=== PATIENT | female | born 1985 | race Caucasian/White ===

== ENCOUNTER → 2020-07-16 | Outpatient (CLI) | payer BC ==
[2020-07-16 13:49] LABS: Basophils % (A) 0 %; Eosinophils # (A) 0.1 k/uL (0-0.7); Eosinophils % (A) 1 %; HCT 31.2 % (34.0-46.0); HGB 10.5 gm/dL (11.4-16.0); Lymphocytes # (A) 1.6 k/uL (1.0-4.8); Lymphocytes % (A) 17 %; MCH 29.5 pg (25.0-35.0); MCHC 33.8 g/dL (31.0-37.0); MCV 87.3 fL (80.0-100.0); Monocytes # (A) 0.4 k/uL (0-1.0); Monocytes % (A) 4 %; Neutrophils # (A) 7.3 k/uL (1.3-7.7); Neutrophils % (A) 77 %; Platelet Count 299 k/uL (150-450); RBC 3.57 m/uL (3.80-5.40); RDW 14.1 % (11.5-15.5); WBC 9.6 k/uL (3.8-10.6)
[2020-07-16 19:59] LABS: Total Volume 24 Hour,Urine 900 mL
[2020-07-16 21:03] LABS: Total Protein 24 Hour,Urine 188.1 mg/24Hr
[2020-07-17 02:23] LABS: Creatinine 24 Hour,Urine 1239.3 mg/24hr (800.0-1800.0)
== END | disposition home or self-care (01) ==
LOC: LABWHC1 13:22
PROVIDERS: ATTEND Obstetrics & Gynecology
DX: R80.9 Proteinuria, unspecified (principal)
CPT/HCPCS: 36415; 81050; 82575; 84156; 84450; 84460; 84550; 85025

== ENCOUNTER 2020-09-08 10:01 | Inpatient (IN) | payer BC ==
[2020-09-07 13:46] VITALS: BMI 33.8
[~2020-09-08 10:01] MED LIST: CITRIC ACID-SODIUM CITRATE 15 ML CUP PO ONE; LACTATED RINGERS 1,000 ML IV ONE; LACTATED RINGERS 1,000 ML IV SCH
[2020-09-08 10:33] LABS: Glucose,Whole Blood 75 mg/dL (75-99)
[2020-09-08 10:49] LABS: Basophils % (A) 0 %; Eosinophils # (A) 0.1 k/uL (0-0.7); Eosinophils % (A) 1 %; HCT 35.2 % (34.0-46.0); HGB 11.4 gm/dL (11.4-16.0); Lymphocytes # (A) 1.7 k/uL (1.0-4.8); Lymphocytes % (A) 17 %; MCH 27.5 pg (25.0-35.0); MCHC 32.4 g/dL (31.0-37.0); Mean Platelet Volume 8.2; Monocytes # (A) 0.5 k/uL (0-1.0); Monocytes % (A) 5 %; Neutrophils # (A) 7.5 k/uL (1.3-7.7); Neutrophils % (A) 75 %; Platelet Count 315 k/uL (150-450); RBC 4.14 m/uL (3.80-5.40); RDW 14.8 % (11.5-15.5)
--- NOTE | 2020-09-08 12:01 | P.HPOB ---
History of Present Illness H&P Date: 09/08/20 Chief Complaint: Insulin-dependent gestational diabetes, breech presentation, 38-0/7 weeks This is a 34-year-old 1 para 0 woman with an estimated due date of 09/22/2020 based on LMP consistent with first trimester ultrasound. She is admitted at 38-0/7 weeks gestation for primary low transverse section secondary to history of insulin-dependent gestational diabetes as well as findings of breech presentation on 36 week ultrasound. She had also had estimat ed weight greater than the 88th percentile. She has had reassuring testing and has been followed with an board certified arts therapist for insulin management. She is taking a long-acting insulin in the evening as well as covering meals with an insulin sliding scale. has otherwise been uncomplicated. She has a history of a cervical cold knife cone biopsy and had normal cervical length ultrasounds during the . Laboratory data: Blood type O+, antibody screen negative, rubella immune, VDRL nonreactive, hepatitis B surface antigen negative, HIV negative, gonorrhea and clinic cultures negative, glucose tolerance testing abnormal, group B strep cultures negative. On examination today by Carlos Alberto's maneuver the is not clearly in the breech presentation. The patient indicates she strongly desires primary low transverse section regardless of positioning. We have discussed previously the risk of large for gestational age fetus in the setting of in sulin-dependent diabetes and the potential risks for delivery competitions. In light of these things and her plan already for primary section we agreed to proceed. She also has signed consent forms for bilateral tubal ligation and very much would like this accomplished. We have discussed alternatives for long-term contraception including the interval tubal ligation, intrauterine device or vasectomy. Review of Systems All systems: negative Past Medical History Past Medical History: Diabetes Mellitus Additional Past Medical History / Comment(s): gestational diabetes, 1st pregnan cy -LMP November 2019, tests positive for TB-xrays always negative. History of Any Multi-Drug Resistant Organisms: None Reported Past Surgical History: Cholecystectomy Additional Past Surgical History / Comment(s): acl right knee x1 and meniscus x2 right knee Past Anesthesia/Blood Transfusion Reactions: Previous Problems w/ Anesthesia, Motion Sickness Additional Past Anesthesia/Blood Transfusion Reaction / Comment(s): takes awhile to wake up Past Psychological History: No Psychological Hx Reported Smoking Status: Never smoker Past Alcohol Use History: Occasional Additional Past Alcohol Use History / Comment(s): No alcohol while Past Drug Use History: None Reported - Past Family History Mother Family Medical History: Diabetes Mellitus Medications and Allergies Home Medications Medication Instructions Recorded Confirmed Type Aspirin [Adult Low Dose Aspirin EC] 81 mg PO DAILY 09/07/20 09/08/20 History Insulin ? Toujeo? 8 units SQ HS 09/07/20 09/08/20 History Insulin Lispro [humaLOG Kwikpen] 0 unit SQ AC-TID PRN 09/07/20 09/08/20 History Pnv No.95/Ferrous Fum/Folic AC 1 each PO DAILY 09/07/20 09/08/20 History [ Multivitamin Tablet] Allergies Allergy/AdvReac Type Severity Reaction Status Date / Time SURGICAL GLUE Allergy Unknown itching Uncoded 09/08/20 10:15 and welts. Exam Vital Signs Temp Pulse Resp BP Pulse Ox 09/08/20 10:14 97.8 F 99 18 136/75 98 Intake and Output 09/07/20 09/08/20 09/08/20 22:59 06:59 14:59 Other: Weight 83.915 kg Results Result Diagrams: 09/08/20 10:30 Assessment and Plan (1) Breech presentation Current Visit: Yes Status: Acute Code(s): O32.1XX0 - MATERNAL CARE FOR BREECH PRESENTATION, UNSP SNOMED Code(s): 1287228 (2) Advanced maternal age (AMA) in Current Visit: Yes Status: Acute Code(s): QHF7719 - SNOMED Code(s): 829505436 (3) Gestational diabetes Current Visit: Yes Status: Acute Code(s): O24.419 - GESTATIONAL DIABETES MELLITUS IN , UNSP CONTROL SNOMED Code(s): 81962216 (4) Family planning Current Visit: Yes Status: Acute Code(s): Z30.09 - ENCOUNTER FOR OT GENERAL CNSL AND ADVICE ON CONTRACEPTION SNOMED Code(s): 612650481 Plan: 34-year-old 1 para 0 woman at 38-0/7 weeks gestation admitted for primary low transverse section secondary to insulin-dependent gestational diabetes and findings of breech presentation on 36 week ultrasound. Patient desires the bilateral tubal ligation and consents have been obtained. Please see above discussion regarding presentation, options for delivery and contraception. Risks of primary low transverse section have been extensively discussed in the outpatient setting and no further questions on today.
[2020-09-08] MEDS ORDERED: KETOROLAC 15 MG/ML 1 ML VIAL ONE (12:06)
[2020-09-08] MEDS ORDERED: ONDANSETRON 4 MG/2 ML VIAL ONE (12:06)
[2020-09-08] MEDS ORDERED: OXYTOCIN 10 UNIT/ML 1 ML VIAL ONE (12:06)
[2020-09-08] MEDS ORDERED: MORPHINE SULFATE (PF) 0.3 MG/0.3 ML SYR ONE (12:06)
[2020-09-08] MEDS ORDERED: diphenhydrAMINE 25 MG CAP PO PRN (12:56)
[2020-09-08] MEDS ORDERED: HYDROcodone/APAP 5-325MG 1 EACH TAB PO PRN (12:56)
[2020-09-08] MEDS ORDERED: NALOXONE 0.4 MG/ML 1 ML VIAL IV PRN (12:56)
[2020-09-08] MEDS ORDERED: ONDANSETRON 4 MG/2 ML VIAL IVP PRN (12:56)
[2020-09-08] MEDS ORDERED: ZOLPIDEM 5 MG TAB PO PRN (12:56)
[2020-09-08] MEDS ORDERED: KETOROLAC 15 MG/ML 1 ML VIAL IVP PRN (12:56)
[2020-09-08] MEDS ORDERED: diphenhydrAMINE 50 MG/ML 1 ML VIAL IVP PRN ×2 (12:56)
[2020-09-08] MEDS ORDERED: diphenhydrAMINE 50 MG CAP PO PRN (12:56)
--- NOTE | 2020-09-08 12:56 | P.OP ---
Date of Procedure: 09/08/20 Preoperative Diagnosis: Intrauterine at 38-0/7 weeks gestation Breech LGA Advanced maternal age Desires permanent sterility Postoperative Diagnosis: Intrauterine at 38-0/7 weeks presentation Vertex presentation Advanced maternal age Desires permanent sterility Procedure(s) Performed: Primary low transverse section Anesthesia: spinal Surgeon: Angella Connell Auger Press Operator #1: Katarzyna Velazqeuz Estimated Blood Loss (ml): 760 IV fluids (ml): 1,000 Urine output (ml): 200 Pathology: none sent Condition: stable Disposition: floor Indications for Procedure: This is a 34-year-old 1 para 0 woman who is admitted at 38-0/7 weeks gestation. is complicated by insulin-dependent gestational diabetes. Pelvic ultrasound done at 36 weeks gestation showed LGA and breech presentation. The patient desired permanent sterility therefore was scheduled for primary low transverse section with bilateral tubal ligation. By Carlos Alberto's prior to delivery suspected the was no longer in breech presentation. Discussion was held with the patient and the father of her baby and she strongly desires to proceed with the plan for primary low transverse section especially in light of suspected LGA and desire for permanent sterility. We therefore proceeded to surgery. Operative Findings: Male infant in the vertex occiput posterior position with Apgars of 8 at 1 minute and 9 at 5 minutes weighing 7 lbs. 7 oz., 3380 g. Intact, three-vessel cord placenta. Normal-appearing bilateral fallopian tubes and ovaries. Description of Procedure: After the patient was met preoperatively and all questions were answered, she was taken to the operating room where spinal anesthetic was administered without incident. She was then positioned, prepped and draped in the dorsal supine position with a leftward tilt. Cardenas catheter was placed. After anesthetic was confirmed adequate, a low transverse skin incision was made following the pre- existing scar. This was carried down to the underlying fascia both sharply and with the electrocautery. The fascia was then incised in the midline and extended bilaterally with the Winston scissors. The superior aspect of the fascial incision was elevated and the underlying rectus muscles dissected off sharply and with the electrocautery. The inferior aspect of the fascial incision was also elevated and the underlying rectus muscles dissected off sharply. The muscles were adherent in the midline. These were bluntly and the peritoneum was tented up with hemostats. The peritoneum was entered sharply with the Metzenbaum scissors. The peritoneal incision was extended inferiorly and superiorly with good visualization of the bladder. The bladder blade was placed. The vesicouterine peritoneum was identified, tented up and entered sharply, the bladder flap was created both sharply and digitally. A low transverse uterine incision was then made sharply and carried down to the underlying amniotic membranes. Membranes were ruptured and clear fluid was noted. The uterine incision was extended bilaterally bluntly. The infant's head was delivered from the incision without difficulty. The nose and mouth were bulb suctioned. The rest of the was delivered onto the field without difficulty. And cut and the infant was taken to the warmer. An intact, three-vessel cord placenta was then manually removed and the uterus was exteriorized. The uterus was cleared of all clot and debris. The uterine incision was delineated with Allen clamps. The uterine incision was then closed in a running locked fashion with 0 Vicryl suture. Additional [id number] sutures were placed where necessary along the incision for hemostasis. The right and left fallopian tubes were positively identified and carried out to the fimbriated ends. Filshie clip clips were then applied in the mid ampullary portion of the tubes completely transecting each tube. The uterus was then returned to the abdomen and the gutters were cleared of all clot and debris. The uterine incision was reinspected and Bovie electrocautery was utilized were necessary for hemostasis. The fascial edges, peritoneal edges and rectus muscles were inspected and Bovie electrocautery utilized were necessary for hemostasis. The fascia was then closed in a running fashion with 0 Vicryl suture. The subcuticular tissue was copiously suction irrigated and Bovie electrocautery utilized were necessary for hemostasis. 3-0 Vicryl suture was utilized to reapproximate the subcuticular tissue. The skin was then closed in a subcutaneous fashion with 4-0 Vicryl suture. All counts reported to me as correct by the operating room staff at the end of the procedure. The patient received antibiotics preoperatively and Pitocin following cord clamp. Mother and infant were both transported from the room in stable condition.
[2020-09-08] MEDS ORDERED: OXYTOCIN 30 UNITS/500 ML NS 30 UNIT in SALINE 1 500ML.BAG IV SCH (13:00)
[2020-09-08] MEDS: METOCLOPRAMIDE 5 MG/ML 2 ML VIAL IVP PRN ×2 (13:34→23:05)
[2020-09-08] MEDS: LACTATED RINGERS 1,000 ML IV SCH ×3 (14:12→22:18)
[2020-09-08] MEDS: INSULIN ASPART (NovoLOG) 100 UNIT/ML VIAL SQ SCH ×2 (17:01→22:28)
[2020-09-08 17:06] LABS: Glucose,Whole Blood 63 mg/dL (75-99)
[2020-09-08 17:16] LABS: Hemoglobin A1C 5.6 % (4.0-6.0)
[2020-09-08] MEDS: SENNOSIDES-DOCUSATE SODIUM 1 EACH TAB PO SCH (20:52)
[2020-09-08 21:43] LABS: Glucose,Whole Blood 78 mg/dL (75-99)
[2020-09-09 06:45] LABS: Basophils % (A) 0 %; Eosinophils # (A) 0.1 k/uL (0-0.7); Eosinophils % (A) 1 %; HCT 30.9 % (34.0-46.0); HGB 10.1 gm/dL (11.4-16.0); Lymphocytes # (A) 1.8 k/uL (1.0-4.8); Lymphocytes % (A) 15 %; MCH 27.9 pg (25.0-35.0); MCHC 32.6 g/dL (31.0-37.0); MCV 85.4 fL (80.0-100.0); Mean Platelet Volume 8.3; Monocytes # (A) 0.5 k/uL (0-1.0); Monocytes % (A) 4 %; Neutrophils # (A) 9.4 k/uL (1.3-7.7); Neutrophils % (A) 79 %; Platelet Count 268 k/uL (150-450); RBC 3.61 m/uL (3.80-5.40); RDW 14.7 % (11.5-15.5); WBC 11.9 k/uL (3.8-10.6)
[2020-09-09 07:22] LABS: Glucose,Whole Blood 124 mg/dL (75-99)
--- NOTE | 2020-09-09 07:48 | P.PN ---
Progress Note - Text Progress Note Date: 09/09/20 ANESTHESIA POST OP VISIT Patient seen at 0710 am on 09/09/2020. She is post-op day #1 C/S with SAB and intrathecal duramorph for post-op pain management. Seen in room, sitting in chair with . States she is doing well today. Reports 8 hours of nausea/vomitting, light-headedness and pruritis yesterday following her C/S. She is feeling much better today. Nausea/vomitting have resolved and pruritis is at a minimum level. Reports a VAS of 0/10 Pleased with her pain management. She denies any lower extremity weakness/numbness/paresthesias, fever/chills, headache and back pain. Will follow up as indicated.
[2020-09-09] MEDS: INSULIN ASPART (NovoLOG) 100 UNIT/ML VIAL SQ SCH ×2 (08:00→23:49)
--- NOTE | 2020-09-09 08:13 | P.PNOBGPC ---
Subjective - Subjective Principal diagnosis: Postop day 1 Interval history: Genna had significant nausea and vomiting postoperatively yesterday afternoon and evening. This has resolved this morning. She is tolerating liquids and is planning to attempt regular diet for breakfast. Her pain is well-controlled. Cardenas catheter has been removed that she is not yet voided spontaneously. Blood sugars overnight have been within normal range not requiring insulin from sliding scale. Patient reports: Reports pain well controlled, Reports ambulating normally Corry: doing well Objective - Vital Signs Latest vital signs: Vital Signs Temp Pulse Resp BP Pulse Ox 09/09/20 07:45 97.9 F 89 16 97/60 99 09/09/20 04:00 98.1 F 80 16 116/75 100 09/08/20 23:30 98.1 F 96 16 116/75 99 09/08/20 20:00 97.8 F 86 16 114/77 99 09/08/20 16:39 97.5 F L 77 16 113/73 100 09/08/20 14:55 97.1 F L 78 16 99/61 95 09/08/20 14:25 73 16 95/57 97 09/08/20 13:55 77 16 105/64 98 09/08/20 13:40 78 16 100/63 100 09/08/20 13:25 77 16 99/63 09/08/20 13:10 86 16 115/66 09/08/20 12:56 96.8 F L 80 16 96/60 99 09/08/20 10:14 97.8 F 99 18 136/75 98 Intake and Output 09/08/20 09/09/20 09/09/20 22:59 06:59 14:59 Output Total 100 600 Balance -100 -600 Output: Urine 100 600 Uretheral (Cardenas) 600 - Exam Extremities: Present: normal, edema (1+) Abdomen: Present: normal appearance, soft, tenderness. Absent: distention Incision: Present: normal, dry, intact. Absent: erythematous Uterus: Present: normal, firm. Absent: tenderness - Labs Labs: Abnormal Lab Results - Last 24 Hours (Table) 09/08/20 09/09/20 09/09/20 Range/Units 16:54 06:29 07:18 WBC 11.9 H (3.8-10.6) k/uL RBC 3.61 L (3.80-5.40) m/uL Hgb 10.1 L (11.4-16.0) gm/dL Hct 30.9 L (34.0-46.0) % Neutrophils # 9.4 H (1.3-7.7) k/uL POC Glucose (mg/dL) 63 L 124 H (75-99) mg/dL Assessment and Plan (1) Advanced maternal age (AMA) in Current Visit: Yes Status: Acute Code(s): [id number] - SNOMED Code(s): 795217173 (2) Gestational diabetes Current Visit: Yes Status: Acute Code(s): O24.419 - GESTATIONAL DIABETES MELLITUS IN , UNSP CONTROL SNOMED Code(s): 06640398 (3) Family planning Current Visit: Yes Status: Acute Code(s): Z30.09 - ENCOUNTER FOR OT GENERAL CNSL AND ADVICE ON CONTRACEPTION SNOMED Code(s): 380750923 (4) S/P section Current Visit: Yes Status: Acute Code(s): Z98.891 - HISTORY OF UTERINE SCAR FROM PREVIOUS SURGERY SNOMED Code(s): 127240356 Plan: Postop day 1 status post primary low transverse section. Postoperative nausea and vomiting has now resolved. Blood sugars have been normal postoperatively. Will discontinue insulin sliding scale after she tolerates general diet and blood sugars remained normal.
[2020-09-09] MEDS: SENNOSIDES-DOCUSATE SODIUM 1 EACH TAB PO SCH ×2 (09:45→20:17)
[2020-09-09] MEDS: IBUPROFEN 600 MG TAB PO PRN ×3 (10:08→23:36)
[2020-09-09 12:12] LABS: Glucose,Whole Blood 120 mg/dL (75-99)
[2020-09-09] MEDS: ACETAMINOPHEN TAB 325 MG TAB PO PRN ×2 (14:12→20:17)
[2020-09-09 17:57] LABS: Glucose,Whole Blood 120 mg/dL (75-99)
[2020-09-09 23:41] LABS: Glucose,Whole Blood 141 mg/dL (75-99)
[2020-09-10] MEDS: INSULIN ASPART (NovoLOG) 100 UNIT/ML VIAL SQ SCH ×3 (00:20→13:50)
[2020-09-10] MEDS: ACETAMINOPHEN TAB 325 MG TAB PO PRN ×3 (04:23→17:30)
[2020-09-10 07:18] LABS: Glucose,Whole Blood 80 mg/dL (75-99)
[2020-09-10] MEDS: SENNOSIDES-DOCUSATE SODIUM 1 EACH TAB PO SCH (07:26)
[2020-09-10] MEDS: IBUPROFEN 600 MG TAB PO PRN ×2 (07:27→14:35)
--- NOTE | 2020-09-10 08:47 | P.DS ---
Providers Date of admission: 09/08/20 10:01 Expected date of discharge: 09/10/20 Attending physician: Angella Connell Primary care physician: Stated None - Discharge Diagnosis(es) (1) Advanced maternal age (AMA) in Current Visit: Yes Status: Acute (2) Gestational diabetes Current Visit: Yes Status: Acute (3) Family planning Current Visit: Yes Status: Acute (4) S/P section Current Visit: Yes Status: Acute Hospital Course: This is a 34-year-old 1 now para 1 woman who was admitted at 38-0/7 weeks gestation for a primary low transverse section. Her had been complicated by insulin-dependent gestational diabetes. At 36 weeks infant was discovered to be in the breech presentation and plans for primary low transverse section were made. Patient and her desire no further pregnancies and after consultation consent was obtained for bilateral tubal ligation at the time of . The day of delivery however by Carlos Alberto is suspected that is no longer in the breech presentation. After counseling the patient and her elect to proceed regardless to the primary as opposed to induction of labor. She had had an ultrasound suspicious of LGA as well. The patient then underwent an uncomplicated low-transverse primary section. Findings at the time of surgery were significant for a male infant in the vertex presentation with Apgars of 8 at 1 minute and 9 at 5 minutes weighing 7 lbs. 7 oz. Bilateral tubal ligation was performed. See operative note for complete details. The patient's postoperative course was unremarkable. Unfortunately she did have some significant nausea and vomiting on postop day 0. By postoperative day #1 she w as however able to tolerate a general diet. She was followed by an insulin sliding scale and only required 1 unit of insulin throughout her stay. By postoperative day #2 she was tolerating a general diet, ambulating and voiding without difficulty, her vital signs were stable, her blood sugars were within normal limits, her incision appeared well healing and she was therefore discharged home with routine instructions for postoperative care and follow-up. Procedures: Primary low transverse section with bilateral tubal ligation Patient Condition at Discharge: Good Plan - Discharge Summary Discharge Rx Participant: Yes New Discharge Prescriptions: New HYDROcodone/APAP 5-325MG [Medanales 5-325] 1 each PO Q6HR PRN #10 tab PRN Reason: Moderate Pain Discontinued Insulin ? Toujeo? 8 units SQ HS Aspirin [Adult Low Dose Aspirin EC] 81 mg PO DAILY Insulin Lispro [humaLOG Kwikpen] 0 unit SQ AC-TID PRN PRN Reason: Blood Sugar - High No Action Pnv No.95/Ferrous Fum/Folic AC [ Multivitamin Tablet] 1 each PO DAILY Discharge Medication List Pnv No.95/Ferrous Fum/Folic AC [ Multivitamin Tablet] 1 each PO DAILY 09/07/20 [History] HYDROcodone/APAP 5-325MG [Medanales 5-325] 1 each PO Q6HR PRN #10 tab 09/10/20 [Rx] Follow up Appointment(s)/Referral(s): Angella Connell MD [STAFF PHYSICIAN] - 2 Weeks Activity/Diet/Wound Care/Special Instructions: Follow-up in 2 weeks after surgery in the office. Call the office with any concerning signs or symptoms including fever greater than 101, severe abdominal pain, heavy vaginal bleeding, signs of wound infection, increased swelling or redness of the lower extremities, signs of depression. No driving for 2 weeks after surgery. No heavy lifting or vigorous activity until reevaluated in the office. No intercourse for 6 weeks after delivery. Discharge Disposition: HOME SELF-CARE
[2020-09-10 09:23] VITALS: TEMP 98.1
[2020-09-10 18:04] VITALS: BP 121/70; PULSE 74; RESP 17
== END 2020-09-10 18:05 | disposition home or self-care (01) | DRG 785 ==
LOC: 4FBP 10:01
PROVIDERS: ADMIT Obstetrics & Gynecology; ATTEND Obstetrics & Gynecology
PROC: 0UB70ZZ Excision of Bilateral Fallopian Tubes, Open Approach (ICD-10-PCS; principal; 2020-09-08 12:00)
PROC: 10D00Z1 Extraction of Products of Conception, Low, Open Approach (ICD-10-PCS; principal; 2020-09-08 12:00)
DX: O36.63X0 Maternal care for excessive fetal growth, third trimester, not applicable or unspecified (principal); O24.424 Gestational diabetes mellitus in childbirth, insulin controlled; O32.1XX0 Maternal care for breech presentation, not applicable or unspecified; L29.9 Pruritus, unspecified; Z30.2 Encounter for sterilization; Z37.0 Single live birth; Z3A.38 38 weeks gestation of pregnancy; Z79.82 Long term (current) use of aspirin; Z83.3 Family history of diabetes mellitus
CPT/HCPCS: 83036; 85025; 86850; 86900; 86901